=== PATIENT | male | born 1990 | race Caucasian/White ===

== ENCOUNTER 2017-05-02 03:55 | Emergency (ER) | payer OTHER ==
[~2017-05-02] VITALS: Ht 188 cm; Wt 82.8 kg
[~2017-05-02 03:55] MED LIST: ALBU0.086 INH; IPRA0.03; PRED50TA PO; ZITH500T PO
[2017-05-02 04:00] VITALS: BP 186/147; PULSE 87; RESP 10; TEMP 97.6; O2SAT 87
[2017-05-02 04:11] VITALS: BP 118/85; PULSE 92; RESP 20; O2SAT 96
--- NOTE | 2017-05-02 04:13 | PD ---
HPI Chief Complaint: asthma Time Seen by Provider: 04:09 Travel History International Travel<30 days: No Contact w/Intl Traveler<30days: No Traveled to known affect area: No History of Present Illness HPI 27-year-old male with history of asthma out of his albuterol to nebulized times one week. Patient states last steroid was 2 months ago last antibiotic was 2 months ago. Patient to go uses his nebulizer frequently. Patient is out of medication. Patient does not have a primary care provider. Patient's had no fever. Patient's had cough without phlegm production. No report of hemoptysis. Patient is a non-cigarette smoker. PFSH Past Medical History Narrative Medical Asthma; no surgery; no tobacco use; nursing notes reviewed Asthma: Yes Immunizations Current: Yes Past Surgical History Abdominal Aneurysm Repair: No Social History Alcohol Use: No Tobacco Use: No Substance Use: No Allergies-Medications (Allergen,Severity, Reaction): Coded Allergies: Amoxicillin (Verified Allergy, Severe, UNKNOWN, 05/02/17) Reported Meds & Prescriptions Reported Meds & Active Scripts Active Prednisone 50 Mg Tab 50 Mg PO DAILY 4 Days Proair Hfa 8.5 GM Inh (Albuterol Sulfate) 90 Mcg/Act Aer 2 Puff INH Q4-6H PRN 108 mcg/actuation Albuterol Neb (Albuterol Sulfate) 2.5 Mg/0.5 Ml Neb 2.5 Mg NEB Q4HR NEB PRN Note: The Albuterol Sulfate Inhalation Solution is concentrated and must be diluted. Read complete instructions carefully before using. Reported Albuterol Neb (Albuterol Sulfate) 2.5 Mg/0.5 Ml Neb 2.5 Mg NEB Q6HR NEB PRN Note: The Albuterol Sulfate Inhalation Solution is concentrated and must be diluted. Read complete instructions carefully before using. Review of Systems Except as stated in HPI: all other systems reviewed are Neg General / Constitutional: No: Fever HENT: No: Congestion Cardiovascular: No: Chest Pain or Discomfort Respiratory: Positive: Shortness of Breath, Wheezing Gastrointestinal: No: Abdominal Pain Genitourinary: No: Flank Pain Musculoskeletal: No: Pain Skin: No Rash Neurologic: No: Weakness Hematologic/Lymphatic: No: Lymph Node Enlargement Physical Exam Narrative GENERAL: Well-developed well-nourished male in no acute distress with mild respiratory distress SKIN: Warm and dry. HEAD: Normocephalic. EYES: No scleral icterus. No injection or drainage. NECK: Supple, trachea midline. No JVD or lymphadenopathy. CARDIOVASCULAR: Regular rate and rhythm without murmurs, gallops, or rubs. RESPIRATORY: Breath sounds equal bilaterally; diminished bilaterally. No accessory muscle use. GASTROINTESTINAL: Abdomen soft, non-tender, nondistended. MUSCULOSKELETAL: No cyanosis, or edema. BACK: Nontender without obvious deformity. No CVA tenderness. Data Data Last Documented VS Vital Signs Date Time Temp Pulse Resp B/P Pulse Ox O2 Delivery O2 Flow Rate FiO2 05/02/17 04:14 Room Air 05/02/17 04:11 92 20 118/85 96 05/02/17 04:00 97.6 Orders Iv Access Insert/Monitor (05/02/17 04:09) Ecg Monitoring (05/02/17 04:09) Oximetry (05/02/17 04:09) Oxygen Administration (05/02/17 04:09) Sodium Chloride 0.9% Flush (Ns Flush) (05/02/17 04:15) Albuterol-Ipratropium Neb (Duoneb Neb) (05/02/17 04:15) Chest, Single Ap (05/02/17 ) Prednisone (Deltasone) (05/02/17 04:15) MDM Medical Decision Making Medical Screen Exam Complete: Yes Emergency Medical Condition: Yes Medical Record Reviewed: Yes Interpretation(s) cxr: No lobar infiltrate no effusion no pneumothorax no acute disease process hyperinflation Differential Diagnosis Exacerbation asthma, bronchitis, pneumonia, pneumothorax, medication refill Narrative Course DuoNeb treatments ordered 3 patient administered prednisone 50 mg by mouth At 4:58 AM patient is clinically improved breath sounds are markedly increased and no wheezing is auscultated; patient is stable for outpatient management and given prescription for albuterol rescue inhaler as well as albuterol suspension for his nebulizer; as well as prednisone. Patient is encouraged to follow-up with primary care provider clinic and return to the emergency department for any concerns Diagnosis Primary Impression: Exacerbation of asthma Additional Impression: Medication refill Referrals: [facility] call for appointment Primary Care Physician call for appointment Patient Instructions: General Instructions Additional Instructions: Increase fluid hydration Use albuterol as often as every 4-6 hours as needed for wheezing Use rescue inhaler as prescribed as needed Complete course of steroid as prescribed Follow-up with primary care provider or [facility] Return to the emergency department for any concerns or change in condition Med/Other Pt SpecificInfo: Prescription(s) given Scripts Prednisone 50 Mg Tab50 Mg PO DAILY 4 Days Ref 0 Prov:Kelly Farris MD 05/02/17 Albuterol 8.5 GM Inh (Proair Hfa 8.5 GM Inh)90 Mcg/Act Aer2 Puff INH Q4-6H PRN ( SHORTNESS OF BREATH) #1 INHALER Ref 0 108 mcg/actuation Prov:Kelly Farris MD 05/02/17 Albuterol Neb 2.5 Mg/0.5 Ml Neb2.5 Mg NEB Q4HR NEB PRN (WHEEZING) #1 BOX Note: The Albuterol Sulfate Inhalation Solution is concentrated and must be diluted. Read complete instructions carefully before using. Prov:Kelly Farris MD 05/02/17 Disposition: 01 DISCHARGE HOME Condition: Stable Kelly Farris MD May 02, 2017 04:13
[2017-05-02] MEDS ORDERED: predniSONE 50 MG TAB PO ONE (04:15)
[2017-05-02] MEDS ORDERED: SODIUM CHLORIDE 0.9% FLUSH 10 ML FLUSH IVF PRN (04:15)
[2017-05-02] MEDS: RESP: ALBUTEROL 2.5 MG/IPRATROPIUM 0.5 MG NEB (SCH) INH (04:18)
[2017-05-02] MEDS ORDERED: ALBU.5I NEB ×2 (04:26→04:30)
--- NOTE | 2017-05-02 04:29 | RADHPO ---
EXAM DATE/TIME: 05/02/2017 04:13 [place] COMPARISON: No previous studies available for comparison. INDICATIONS : Shortness of breath. MEDICAL HISTORY : Asthma. SURGICAL HISTORY : None. ENCOUNTER: Initial ACUITY: 1 day PAIN SCORE: 0/10 LOCATION: Bilateral chest FINDINGS: A single view of the chest demonstrates the lungs to be symmetrically aerated without evidence of mas s, infiltrate or effusion. The cardiomediastinal contours are unremarkable. Osseous structures are intact. CONCLUSION: Normal examination. Chan Osorio MD on May 02, 2017 at 4:28 Board Certified Radiologist. This report was verified electronically.
[2017-05-02] MEDS ORDERED: ALBUAER3 INH (04:30)
[2017-05-02] MEDS ORDERED: PRED50 PO (04:30)
[2017-05-02 05:11] VITALS: BP 119/79
== END 2017-05-02 05:31 | disposition home or self-care (01) ==
LOC: PHED 03:55
DX: J45.901 Unspecified asthma with (acute) exacerbation (principal); Z79.899 Other long term (current) drug therapy
CPT/HCPCS: 71010; 94640; 94664; 99284; J7512

== ENCOUNTER 2017-08-14 07:26 | Emergency (ER) | payer OTHER ==
[~2017-08-14] VITALS: Ht 188 cm; Wt 83.0 kg
[~2017-08-14 07:26] MED LIST changes: +ALBU.5I NEB; -ALBU0.086 INH; +ALBUAER3 INH; -IPRA0.03; +PRED50 PO; -PRED50TA PO; -ZITH500T PO
[2017-08-14 07:27] VITALS: BP 142/79; PULSE 122; RESP 18; TEMP 97.3; O2SAT 95
[2017-08-14] MEDS ORDERED: predniSONE 20 MG TAB PO ONE (07:45)
--- NOTE | 2017-08-14 07:45 | PD ---
HPI Chief Complaint: Respiratory Symptoms Time Seen by Provider: 07:39 Travel History International Travel<30 days: No Contact w/Intl Traveler<30days: No Traveled to known affect area: No History of Present Illness HPI 27yo M with PMH of asthma presents to the ED with c/o sob for a few hours. States like it feels like his asthma. Pt usually uses albuterol nebulizer PRN but ran out of medications 2 weeks ago. Denies any fever, chest pain, n/v, abdominal pain, focal weakness or numbness, history of PE/DVT, recent travel, sick contact. PFSH Past Medical History Asthma: Yes Immunizations Current: Yes Past Surgical History Surgical History: No Previous Surgery Abdominal Aneurysm Repair: No Social History Alcohol Use: No Tobacco Use: No Substance Use: No Allergies-Medications (Allergen,Severity, Reaction): Coded Allergies: amoxicillin (Unverified Allergy, Severe, UNKNOWN, 07/11/17) Reported Meds & Prescriptions Reported Meds & Active Scripts Active Prednisone 20 Mg Tab 40 Mg PO DAILY 5 Days Take 40 mg (2 tablets) daily for 5 days Ventolin Hfa 18 GM Inh (Albuterol Sulfate) 90 Mcg/Act Aer 2 Puff INH Q4H PRN Review of Systems Except as stated in HPI: all other systems reviewed are Neg Physical Exam Narrative GENERAL: 27yo M in mild distress. SKIN: Focused skin assessment warm/dry. HEAD: Atraumatic. Normocephalic. CARDIOVASCULAR: Tachycardic. No murmur appreciated. RESPIRATORY: No accessory muscle use. Very mild inspiratory wheezing. GASTROINTESTINAL: Abdomen soft, non-tender, nondistended. Hepatic and splenic margins not palpable. MUSCULOSKELETAL: No obvious deformities. No clubbing. No cyanosis. No edema. No calf tenderness. NEUROLOGICAL: Awake and alert. No obvious cranial nerve deficits. Motor grossly within normal limits. Normal speech. PSYCHIATRIC: Appropriate mood and affect; insight and judgment normal. Data Data Last Documented VS Vital Signs Date Time Temp Pulse Resp B/P (MAP) Pulse Ox O2 Delivery O2 Flow Rate FiO2 08/14/17 09:26 08/14/17 08:36 90 18 98 Room Air 08/14/17 07:52 21 08/14/17 07:27 97.3 Orders Orders Albuterol-Ipratropium Neb (Duoneb Neb) (08/14/17 07:45) Prednisone (Deltasone) (08/14/17 07:45) D-Dimer (08/14/17 07:59) Labs Laboratory Tests Test 08/14/17 08:10 D-Dimer Quantitative (PE/DVT) 0.36 MG/L [facility] Medical Decision Making Medical Screen Exam Complete: Yes Emergency Medical Condition: Yes Differential Diagnosis Asthma exacerbation vs. URI vs. pneumonia Narrative Course 27yo M with history of asthma here with sob that feels like his asthma. Pt given prednisone 60mg PO and duonebs x3. Pt reevaluated at bedside and feels 100% better. Saturating at 100% with no distress. Lungs are clear bilaterally. Pt was tachycardic so D-dimer was ordered and it is negative. Pt states he gets nervous and his heart rate does go up. HR is now 90bpm. Return precautions given. Diagnosis Primary Impression: Exacerbation of asthma Patient Instructions: General Instructions Departure Forms: Tests/Procedures Additional Instructions: Please follow up with your primary care physician in 1-2 days. Return to the ED if symptoms worsen. Med/Other Pt SpecificInfo: Prescription(s) given Scripts Prednisone (Prednisone) 20 Mg Tab 40 MG PO DAILY for 5 Days, #10 TAB 0 Refills Take 40 mg (2 tablets) daily for 5 days Prov: Melissa Black DO 08/14/17 Albuterol 18 GM Inh (Ventolin Hfa 18 GM Inh) 90 Mcg/Act Aer 2 PUFF INH Q4H Y for SHORTNESS OF BREATH, #1 INHALER 0 Refills Prov: Melissa Black DO 08/14/17 Disposition: 01 DISCHARGE HOME Condition: Stable Melissa Black DO Aug 14, 2017 07:45
[2017-08-14] MEDS: RESP: ALBUTEROL 2.5 MG/IPRATROPIUM 0.5 MG NEB (SCH) INH ×2 (07:47→07:48)
[2017-08-14 07:52] VITALS: O2SAT 94
[2017-08-14 08:36] VITALS: BP 112/69; PULSE 90; RESP 18; O2SAT 98
[2017-08-14] MEDS ORDERED: PRED20 PO (09:09)
[2017-08-14] MEDS ORDERED: VENTAER INH (09:09)
== END 2017-08-14 09:28 | disposition home or self-care (01) ==
LOC: PHED 07:26
DX: J45.901 Unspecified asthma with (acute) exacerbation (principal)
CPT/HCPCS: 85379; 94640; 94664; 99284; J7512